=== PATIENT | male | born 1995 | race Two or more races ===

== ENCOUNTER 2022-01-23 12:13 | Emergency (ER) | payer OTHER ==
[~2022-01-23] VITALS: Ht 185.4 cm; Wt 89.8 kg
== END 2022-01-23 14:42 | disposition home or self-care (01) ==
LOC: ER 12:13
DX: S92.911A Unspecified fracture of right toe(s), initial encounter for closed fracture (principal); W22.03XA Walked into furniture, initial encounter; Y93.9 Activity, unspecified; Y92.019 Unspecified place in single-family (private) house as the place of occurrence of the external cause; Y99.9 Unspecified external cause status